=== PATIENT | male | born 1950 | race Caucasian/White ===

== ENCOUNTER 2018-09-16 08:01 | Day surgery (SDC) | payer OTHER, MEDICAID ==
[2018-09-16] MEDS: VANCOMYCIN 1 GM (PMX) 250 ML IVPB (09:13)
[2018-09-16] MEDS ORDERED: SOD CHLORIDE 0.9% 1,000 ML IV (09:30)
[2018-09-16] MEDS ORDERED: hydrALAzine 20 MG INJ IV (12:00)
[2018-09-16] MEDS ORDERED: ONDANSETRON 4 MG INJ IV (12:00)
[2018-09-16] MEDS ORDERED: PROPOFOL 20 ML (12:00)
[2018-09-16] MEDS ORDERED: OXYCODONE/ACETAMINOPHEN (5/325) TAB PO (12:00)
[2018-09-16] MEDS ORDERED: HYDROmorphONE 1 MG/5 ML IV SYRINGE IV ×3 (12:00)
[2018-09-16] MEDS ORDERED: MEPERIDINE 25 MG INJ IV (12:00)
[2018-09-16] MEDS ORDERED: SEVOFLURANE 15 MIN (12:00)
[2018-09-16] MEDS ORDERED: LABETALOL HCL 20MG INJ IV (12:00)
[2018-09-16] MEDS ORDERED: LIDOCAINE 2% (SDV) 5 ML INJ (12:00)
[2018-09-16] MEDS ORDERED: CIPRO 400 MG/200 ML D5W IVPB (12:00)
[2018-09-16] MEDS ORDERED: VANCOMYCIN 1 GM/250 ML BAG (12:00)
[2018-09-16] MEDS ORDERED: FENTAnyl 50 MCG/ML VIAL (12:12)
[2018-09-16] MEDS ORDERED: ONDANSETRON 4 MG INJ (12:13)
[2018-09-16] MEDS: IOHEXOL 300MG/ML 30 ML BTL (14:12)
== END 2018-09-16 16:00 | disposition home or self-care (01) ==
LOC: SDS 08:01
DX: N35.919 Unspecified urethral stricture, male, unspecified site (principal); I12.9 Hypertensive chronic kidney disease with stage 1 through stage 4 chronic kidney disease, or unspecified chronic kidney disease; E11.22 Type 2 diabetes mellitus with diabetic chronic kidney disease; N18.3 Chronic kidney disease, stage 3 (moderate); E78.5 Hyperlipidemia, unspecified; I25.2 Old myocardial infarction; B19.20 Unspecified viral hepatitis C without hepatic coma; Z87.891 Personal history of nicotine dependence; Z79.82 Long term (current) use of aspirin; N40.1 Benign prostatic hyperplasia with lower urinary tract symptoms; R33.8 Other retention of urine
CPT/HCPCS: 52282; 74430; 82962

== ENCOUNTER 2018-09-20 14:20 | Emergency (ER) | payer OTHER ==
[2018-09-20 17:17] LABS: URINE BLOOD (Dip) POC 3+ (NEGATIVE); URINE KETONES (Dip) POC Negative (NEGATIVE); URINE LEUKOCYTE EST (Dip) POC Trace (NEGATIVE); URINE NITRITE (Dip) POC Negative (NEGATIVE); URINE TOTAL PROTEIN POC 2+ (NEGATIVE)
[2018-09-20 17:17] LABS: URINE PH (Dip) POC 5.5 (5.0-8.5)
== END 2018-09-20 17:30 | disposition home or self-care (01) ==
LOC: FTE 14:20
DX: T85.9XXA Unspecified complication of internal prosthetic device, implant and graft, initial encounter (principal); E11.9 Type 2 diabetes mellitus without complications; E03.9 Hypothyroidism, unspecified; R34 Anuria and oliguria; Y73.2 Prosthetic and other implants, materials and accessory gastroenterology and urology devices associated with adverse incidents; Z79.4 Long term (current) use of insulin; Z79.82 Long term (current) use of aspirin
CPT/HCPCS: 51702; 81003; 87086; 99283-25